=== PATIENT | male | born 1940 | race Hispanic/Latino ===

== ENCOUNTER 2021-04-02 12:31 | Emergency (ER) | payer SELFPAY ==
--- NOTE | 2021-04-02 12:54 | Emergency Department Report ---
HPI - General Time Seen by Provider: 04/02/21 12:52 - HPI HPI: 80-year-old male with pacemaker brought in by EMS in cardiac arrest after the patient apparently had a syncopal episode outside of an eye center. According to the EMS report, the patient's initial rhythm was V. fib. He has received multiple shocks from his pacemaker/defibrillator. He was defibrillated by EMS 3 times. He was intubated in the field with end-tidal's in the 30s. He was given multiple doses of cardiac epi and 75 mg of IV lidocaine but has remained in V. fib the entire time. At the time of arrival to the emergency department, CPR had been ongoing for approximately 40 minutes. Further details of the HPI are highly limited due to the patient's current clinical condition. ED Past Medical Hx - Past Medical History Previous Medical History?: Yes Additional medical history: pacemaker/defibrillator ED Review of Systems ROS: Stated complaint: CARDIAC ARREST Other details as noted in HPI Comment: Unobtainable due to pts medical conditions Physical Exam - Physical Exam Physical Exam: GENERAL: Well developed and well nourished. Obtunded and unresponsive. HEAD: Normocephalic. Left parietal contusion with 2 cm laceration. ENT: Endotracheal tube in place with blood present in the tube. EYES: Pupils are constricted but minimally reactive bilaterally. NECK: Trachea is midline. LUNGS: Bilateral breath sounds with bag ventilation. CARDIOVASCULAR: Regular rate and rhythm. No murmurs or rubs. VASCULAR: Extremities are cool. Pulseless ABDOMEN: Abdomen is soft and nondistended. No rigidity SKIN: Skin is warm and dry NEURO: Patient is unresponsive MUSCULOSKELETAL: No obvious deformities. ED Medical Decision Making - Medical Decision Making 80-year-old male with pacemaker brought in by EMS in cardiac arrest after the patient apparently had a syncopal episode outside of an eye center. According to the EMS report, the patient's initial rhythm was V. fib. He has received multiple shocks from his pacemaker/defibrillator. He was defibrillated by EMS 3 times. ACLS protocol was followed and the patient was given cardiac epi, calcium, amiodarone 300 followed by 150. He was defibrillated. However, the patient never regained a pulse and his rhythm switch to PEA. Bedside echo was performed and revealed no cardiac activity. Time of was called at 12:26 PM. Critical care attestation.: If time is entered above; I have spent that time in minutes in the direct care of this critically ill patient, excluding procedure time. ED Disposition Clinical Impression: Cardiac arrest Disposition: 20 Is pt being admited?: No
== END 2021-04-02 12:52 ==
LOC: ED 12:31
DX: I46.9 Cardiac arrest, cause unspecified (principal)
CPT/HCPCS: 92950; 99285